=== PATIENT | male | born 1985 | race Caucasian/White ===

== ENCOUNTER → 2018-12-08 | Outpatient (CLI) | payer OTHER ==
[2018-12-08 10:45] LABS: U Amphetamine Screen DETECTED; U Barbituate Screen Not Detected; U Benzodiazapine Screen Not Detected; U Buprenorphine Screen Not Detected; U Cannabinoids Screen Not Detected; U Cocaine Screen Not Detected; U Methadone Screen Not Detected; U Methamphetamine Screen Not Detected; U Opiates Screen Not Detected; U Oxycodone Screen Not Detected; U Phencyclidine Screen Not Detected; U Propoxyphene Screen Not Detected
== END ==
LOC: LAB SHORT 10:15 → LAB 10:15
PROVIDERS: Psychiatry & Neurology Psychiatry
DX: Z51.81 Encounter for therapeutic drug level monitoring (principal); Z79.899 Other long term (current) drug therapy

== ENCOUNTER → 2019-06-01 | Outpatient (CLI) | payer OTHER ==
[2019-06-01 11:25] LABS: U Amphetamine Screen DETECTED; U Cannabinoids Screen DETECTED; U Methamphetamine Screen Not Detected
[2019-06-01 11:26] LABS: U Barbituate Screen Not Detected; U Benzodiazapine Screen Not Detected; U Buprenorphine Screen Not Detected; U Cocaine Screen Not Detected; U Methadone Screen Not Detected; U Opiates Screen Not Detected; U Oxycodone Screen Not Detected; U Phencyclidine Screen Not Detected; U Propoxyphene Screen Not Detected
== END ==
LOC: LAB SHORT 10:47 → LAB 10:47
PROVIDERS: Psychiatry & Neurology Psychiatry
DX: Z51.81 Encounter for therapeutic drug level monitoring (principal); Z79.899 Other long term (current) drug therapy

== ENCOUNTER 2021-10-14 12:52 | Inpatient (IN) | payer OTHER ==
[~2021-10-14] VITALS: Ht 193 cm; Wt 104.3 kg
[~2021-10-14 12:52] MED LIST: CYCL10 PO; KETO10 PO; METPRE4DP PO
[2021-10-14 13:18] LABS: Source, Urine Clean Catch
[2021-10-14 13:20] LABS: Appearance, Urine Clear (Clear); Bilirubin, Urine Neg (Neg); Blood, Urine Neg (Neg); Color, Urine Yellow (P-Yellow); Glucose Qualitative, Urine Neg (Neg); Ketones, Urine Neg (Neg); Leukocyte Esterase, Urine Neg (Neg); Nitrite, Urine Neg (Neg); Protein, Urine 1+ (Neg); Specific Gravity, Urine 1.015 (1.003-1.022); Urobilinogen, Urine NORM (Normal); pH, Urine 6.5 (5.0-8.0)
[2021-10-14 17:02] LABS: Influenza A, PCR NEGATIVE (NEGATIVE); Influenza B, PCR NEGATIVE (NEGATIVE); Resp Syncytial Virus, PCR NEGATIVE (NEGATIVE); SARS-Cov-2 (COVID-19) PCR, MMC NEGATIVE (NEGATIVE)
[2021-10-14 17:37] LABS: BASOPHILS ABSOLUTE AUTO 0.03 K/mm3 (0.00-0.23); BASOPHILS PERCENT AUTO 0 % (0-2); EOSINOPHILS ABSOLUTE AUTO 0.01 K/mm3 (0.00-0.68); EOSINOPHILS PERCENT AUTO 0 % (0-6); Hematocrit 41.6 % (37.0-53.0); Hemoglobin 14.4 g/dL (13.5-17.5); IMMATURE GRAN ABSOLUTE AUTO 0.05 K/mm3 (0.00-0.10); IMMATURE GRAN PERCENT AUTO 0 % (0-1); LYMPHOCYTES PERCENT AUTO 20 % (21-46); MONOCYTES ABSOLUTE AUTO 0.56 K/mm3 (0.16-1.47); MONOCYTES PERCENT AUTO 5 % (4-13); Mean Corpuscular HGB 31.2 pg (26.0-34.0); Mean Corpuscular HGB Conc 34.6 g/dL (31.5-36.5); Mean Corpuscular Volume 90 fL (80-100); Mean Platelet Volume 9.2 fL (9.1-12.4); NEUTROPHILS ABSOLUTE AUTO 9.43 K/mm3 (1.96-9.15); NEUTROPHILS PERCENT AUTO 75 % (41-73); Platelet Count 245 K/mm3 (150-400); RDW Coefficient Variation 11.8 % (11.7-14.2); RDW Standard Deviation 38.7 fL (35.1-46.3); Red Blood Cell Count 4.61 M/mm3 (4.30-5.90); White Blood Cell Count 12.58 K/mm3 (4.00-11.30)
[2021-10-14 18:00] LABS: Anion Gap 4 mmol/L (6-16); Blood Urea Nitrogen 15 mg/dL (8-24); Bun/Creatinine Ratio 25.2 (12.0-20.0); CO2, Blood 26 mmol/L (21-32); Calcium, Blood 9.2 mg/dL (8.5-10.1); Chloride, Blood 111 mmol/L (98-108); Glomerular Filtration Rate >60 (60-); Glucose, Blood 103 mg/dL (70-99); Potassium, Blood 4.1 mmol/L (3.5-5.5); Sodium, Blood 141 mmol/L (136-145)
[2021-10-14] MEDS ORDERED: Adderall 5 MG Ta5 MG PO (19:36)
[2021-10-14] MEDS ORDERED: CYCL10 PO (19:38)
[2021-10-14] MEDS ORDERED: KETO10 PO (19:39)
[2021-10-14] MEDS ORDERED: MEDROL4 M1 PO (19:40)
--- NOTE | 2021-10-14 21:09 | NUR ---
PT ARRIVED TO THE FLOOR AT APPROX 1935. PT A/O PLEASANT AND ABLE TO TRANSFER SELF FROM WHEELCHAIR TO BED. PT REPORTS NO PAIN AT THIS TIME. PT REPORTS NUMBNESS TO BUTTOCKS AND POSTERIOR THIGHS. PT BEDREST WITH BATHROOM PRIVLEDGES.
--- NOTE | 2021-10-15 10:23 | NUR ---
PT. GROANING THIS A.M. AND GAGGING. STATES HE HAS ABD. DISCOMFORT A 10. REQUEST PAIN MEDICATION AND THEN IN THE SHOWER X 3. AT THIS TIME IS RESTING IN BED AND VERBALIZE RELIEF OF 10/10 PAIN. NEW ABSORBANT DRSG. TO ABD. INCISION. COLOSTOMY POUCH EMPTIED FOR MEDIUM AMOUNT SOFT BROWN STOOL. DID ASK PT. TO EMPTY AT THIS TIME BUT DECLINED.
--- NOTE | 2021-10-15 10:40 | NUR ---
PT. PLEASANT, ALERT AND ORIENTED, DENIES PAIN. RESTING IN BED WITHOUT COMPLAINT. LOVENOX DISCONTINUED, DOSE NOT GIVEN THIS A.M. APPETITE GOOD. STATES NUMBNESS HAS NOT CHANGED IN LE, " IT ONLY HURTS IF IM MOVING AROUND ALOT AND WALKING".
--- NOTE | 2021-10-15 16:15 | NUR ---
[facility] CALLED NOTIFYING OF BED AVAILABLE. ROOM 5218 WITH RECIEVING NURSE NAMED LATRICE. NOTIFED NURSING ADMEASURER. [facility]
--- NOTE | 2021-10-15 17:26 | NUR ---
PT. DISCHARGED AT 1715. REPORT CALLED TO LATRICE AT [facility] IN [place]. PATIENT CONTINUE TO DENY NEED FOR PAIN MEDICATION. AT BEDSIDE. PAPERWORK SENT WITH TRANSFER TAYLOR. LEFT VIA HUMBERTO.
== END 2021-10-15 17:15 | disposition short-term general hospital (02) | DRG 552 ==
LOC: ER 12:52 → ERHOLD 17:11 → SURS 17:11
PROVIDERS: Emergency Medicine; Physician Assistant; ADMIT Internal Medicine
DX: M51.16 Intervertebral disc disorders with radiculopathy, lumbar region (principal); Z20.822 Contact with and (suspected) exposure to COVID-19; F90.9 Attention-deficit hyperactivity disorder, unspecified type; F17.210 Nicotine dependence, cigarettes, uncomplicated; Z28.21 Immunization not carried out because of patient refusal; Z79.899 Other long term (current) drug therapy; Z90.49 Acquired absence of other specified parts of digestive tract
CPT/HCPCS: 0241U; 72148; 80048; 85025; 99284-25; A9270; J7509

== ENCOUNTER 2024-04-07 20:48 | Emergency (ER) | payer OTHER ==
[~2024-04-07] VITALS: Ht 193 cm; Wt 99.8 kg
[~2024-04-07 20:48] MED LIST changes: +Adderall 5 MG Ta5 MG PO; +ERYT1OIN LEFTEYE; +MEDROL4 M1 PO
[2024-04-07 21:02] VITALS: BP 157/108
[2024-04-07] MEDS ORDERED: QUEtiapine Fumarate 100 MG Tab PO ONE (21:45)
== END 2024-04-07 23:10 | disposition home or self-care (01) ==
LOC: ER 20:48
DX: F41.9 Anxiety disorder, unspecified (principal); G47.00 Insomnia, unspecified; F17.200 Nicotine dependence, unspecified, uncomplicated
CPT/HCPCS: 99283; 99284